=== PATIENT | male | born 1945 | race Caucasian/White ===

== ENCOUNTER 2018-08-14 12:14 | Emergency (ER) | payer MEDICAID, MEDICARE ==
[~2018-08-14] VITALS: Ht 182.9 cm; Wt 86.4 kg
[~2018-08-14 12:14] MED LIST: ARIP30TA PO; BUPR-93 PO; CALC-467 PO; DOCU250C91 PO; METO-408 PO; OLAN5TAB2 PO; OMEP20 PO; OMEP20CA10 PO; VENL75TA63 PO
[2018-08-14] MEDS ORDERED: PALI156D IM (14:18)
[2018-08-14 14:37] LABS: BASOPHILS % (AUTO) 0.8 % (0.0-2.0); EOSINOPHILS % (AUTO) 1.4 % (1.0-6.0); HEMATOCRIT 35.8 % (41-53); LYMPHOCYTES # (AUTO) 1.1 K/uL (1.0-4.8); LYMPHOCYTES % (AUTO) 13.4 % (22.0-44.0); MEAN CORPUSCULAR HEMOGLOBIN 28.6 pg (26.0-34.0); MEAN CORPUSCULAR HGB CONC 33.4 G/dL (31.0-37.0); MEAN CORPUSCULAR VOLUME 86 fL (80-100); MONOCYTES # (AUTO) 0.9 K/uL (0.1-1.0); MONOCYTES % (AUTO) 10.5 % (2.0-9.0); NEUTROPHILS # (AUTO) 6.2 K/uL (1.8-7.7); NEUTROPHILS % (AUTO) 73.9 % (40.0-70.0); PLATELET COUNT (AUTO) 239 K/uL (150-450); RED BLOOD CELL COUNT(AUTO) 4.19 MIL/uL (4.50-5.90)
[2018-08-14 14:42] LABS: ANION GAP 3 mmol/L (8-16); CALCIUM, TOTAL 8.1 mg/dL (8.8-10.5); CARBON DIOXIDE 34 mmol/L (22-29); CHLORIDE 103 mmol/L (98-107); CREATININE 0.74 mg/dL (0.60-1.30); GLOMERULAR FILTR. RATE CALC > 60 mL/min (>60); GLUCOSE,RANDOM 86 mg/dL (70-110); SODIUM SERUM 140 mmol/L (136-145); UREA NITROGEN, BLOOD 17 mg/dL (7-18)
[2018-08-14 14:49] LABS: ALANINE AMINOTRANSFERASE 17 U/L (12-78); ALBUMIN 2.9 g/dL (3.4-5.0); ALKALINE PHOSPHATASE 102 U/L (46-116); ASPARTATE AMINOTRANSFERASE 16 U/L (15-37); BILIRUBIN,TOTAL 0.4 mg/dL (0.1-1.0); TOTAL PROTEIN, SERUM 5.7 g/dL (6.4-8.2)
[2018-08-14 14:50] LABS: PROTHROMBIN TIME 10.4 SEC (9.4-11.6)
[2018-08-14 15:41] VITALS: BP 149/81
== END 2018-08-14 16:10 | disposition home or self-care (01) ==
LOC: EMS 12:15
DX: S01.81XA Laceration without foreign body of other part of head, initial encounter (principal); F17.200 Nicotine dependence, unspecified, uncomplicated; K21.9 Gastro-esophageal reflux disease without esophagitis; I10 Essential (primary) hypertension; F32.9 Major depressive disorder, single episode, unspecified; F20.9 Schizophrenia, unspecified; W01.0XXA Fall on same level from slipping, tripping and stumbling without subsequent striking against object, initial encounter; Y93.89 Activity, other specified; Y92.89 Other specified places as the place of occurrence of the external cause; Y99.8 Other external cause status
CPT/HCPCS: 12011; 70450; 70486; 72125

== ENCOUNTER 2019-11-20 16:50 | Inpatient (IN) | payer MEDICARE, MEDICAID ==
[~2019-11-20] VITALS: Ht 172.7 cm; Wt 77.3 kg
[~2019-11-20 16:50] MED LIST changes: -ARIP30TA PO; -BUPR-93 PO; -CALC-467 PO; -DOCU250C91 PO; -METO-408 PO; -OLAN5TAB2 PO; -OMEP20 PO; -OMEP20CA10 PO; +PALI156D IM; -VENL75TA63 PO
[2019-11-20 17:47] LABS: BASOPHILS % (AUTO) 0.6 % (0.0-2.0); EOSINOPHILS % (AUTO) 4.9 % (1.0-6.0); HEMATOCRIT 27.2 % (41-53); HEMOGLOBIN 8.7 g/dL (13.5-17.5); LYMPHOCYTES # (AUTO) 1.1 K/uL (1.0-4.8); LYMPHOCYTES % (AUTO) 14.1 % (22.0-44.0); MEAN CORPUSCULAR HEMOGLOBIN 23.3 pg (26.0-34.0); MEAN CORPUSCULAR HGB CONC 31.9 G/dL (31.0-37.0); MEAN CORPUSCULAR VOLUME 73 fL (80-100); MONOCYTES # (AUTO) 0.9 K/uL (0.1-1.0); MONOCYTES % (AUTO) 11.5 % (2.0-9.0); NEUTROPHILS # (AUTO) 5.3 K/uL (1.8-7.7); NEUTROPHILS % (AUTO) 68.9 % (40.0-70.0); PLATELET COUNT (AUTO) 317 K/uL (150-450); RED BLOOD CELL COUNT(AUTO) 3.73 MIL/uL (4.50-5.90); RED CELL DISTRIBUTION WIDTH 15.6 % (11.5-14.5)
[2019-11-20 18:09] LABS: ANION GAP 6 mmol/L (8-16); CALCIUM, TOTAL 8.1 mg/dL (8.8-10.5); CARBON DIOXIDE 30 mmol/L (22-29); CHLORIDE 105 mmol/L (98-107); CREATININE 0.75 mg/dL (0.60-1.30); GLUCOSE,RANDOM 95 mg/dL (70-110); POTASSIUM 3.5 mmol/L (3.5-5.1); SODIUM SERUM 141 mmol/L (136-145); UREA NITROGEN, BLOOD 15 mg/dL (7-18)
[2019-11-20 18:13] LABS: GLOMERULAR FILTR. RATE CALC > 60 mL/min (>60)
[2019-11-20 18:15] LABS: ALANINE AMINOTRANSFERASE 14 U/L (12-78); ALBUMIN 2.6 g/dL (3.4-5.0); ALKALINE PHOSPHATASE 76 U/L (46-116); ASPARTATE AMINOTRANSFERASE 10 U/L (15-37); BILIRUBIN,TOTAL 0.3 mg/dL (0.1-1.0); TOTAL PROTEIN, SERUM 6.4 g/dL (6.4-8.2)
[2019-11-20] MEDS ORDERED: CefTRIAXone 1 GM/DEXTROSE 50 ML IV ONE (18:15)
[2019-11-20] MEDS ORDERED: 0.9% SODIUM CHLORIDE 10 ML SYRINGE IVP PRN (20:15)
[2019-11-20] MEDS ORDERED: ACETAMINOPHEN 325 MG TABLET PO PRN ×2 (20:15→22:15)
[2019-11-20] MEDS ORDERED: ONDANSETRON HCL 4 MG/2 ML VIAL IVP PRN ×2 (20:15→22:15)
[2019-11-20] MEDS ORDERED: ZOLPIDEM TARTRATE 5 MG TABLET PO PRN (22:15)
[2019-11-20] MEDS ORDERED: HYDROCODONE/ACETAMINOPHEN 5-325 MG TABLET PO PRN (22:15)
[2019-11-20] MEDS ORDERED: MORPHINE SULFATE 2 MG/ML SYRINGE IVP PRN (22:15)
[2019-11-20] MEDS ORDERED: BISACODYL 10 MG RECTAL RECTAL SUPPOSITORY PR PRN (22:15)
[2019-11-20] MEDS ORDERED: MAGNESIUM HYDROXIDE SUSPENSION 30 ML UDCUP PO PRN (22:15)
[2019-11-20 22:39] VITALS: BP 159/78
[2019-11-20] MEDS ORDERED: VANCOMYCIN HCL 1.5 GM in DEXTROSE 5%-WATER 250 ML IV ONE (23:00)
[2019-11-20] MEDS ORDERED: SODIUM CHLORIDE 0.9% 250 ML IV ONE (23:07)
[2019-11-20] MEDS: HEPARIN SODIUM,PORCINE 5,000 UNITS/ML VIAL SQ SCH (23:10)
[2019-11-21 05:00] VITALS: BP 141/72
[2019-11-21] MEDS ORDERED: INFLUENZA VIRUS VACCINE QVS 2019-20 (3YR+)/PF 60 MCG/0.5 ML SYRINGE IM ONE (05:30)
[2019-11-21] MEDS: VANCOMYCIN HCL 750 MG in DEXTROSE 5%-WATER 250 ML IV SCH ×3 (06:25→23:19)
[2019-11-21] MEDS ORDERED: VANCOMYCIN HCL 500 MG in DEXTROSE 5%-WATER 100 ML IV SCH (07:00)
[2019-11-21 07:48] LABS: BASOPHILS % (AUTO) 0.5 % (0.0-2.0); EOSINOPHILS % (AUTO) 4.1 % (1.0-6.0); HEMATOCRIT 28.1 % (41-53); LYMPHOCYTES # (AUTO) 0.9 K/uL (1.0-4.8); LYMPHOCYTES % (AUTO) 16.2 % (22.0-44.0); MEAN CORPUSCULAR HEMOGLOBIN 23.2 pg (26.0-34.0); MEAN CORPUSCULAR VOLUME 73 fL (80-100); MONOCYTES # (AUTO) 0.6 K/uL (0.1-1.0); MONOCYTES % (AUTO) 10.9 % (2.0-9.0); NEUTROPHILS # (AUTO) 3.7 K/uL (1.8-7.7); NEUTROPHILS % (AUTO) 68.3 % (40.0-70.0); PLATELET COUNT (AUTO) 315 K/uL (150-450); RED BLOOD CELL COUNT(AUTO) 3.88 MIL/uL (4.50-5.90); RED CELL DISTRIBUTION WIDTH 15.5 % (11.5-14.5)
[2019-11-21 08:17] LABS: ALANINE AMINOTRANSFERASE 11 U/L (12-78); ALBUMIN 2.5 g/dL (3.4-5.0); ALKALINE PHOSPHATASE 68 U/L (46-116); ANION GAP 7 mmol/L (8-16); ASPARTATE AMINOTRANSFERASE 7 U/L (15-37); BILIRUBIN,TOTAL 0.4 mg/dL (0.1-1.0); CALCIUM, TOTAL 8.3 mg/dL (8.8-10.5); CARBON DIOXIDE 29 mmol/L (22-29); CHLORIDE 107 mmol/L (98-107); CREATININE 0.76 mg/dL (0.60-1.30); GLUCOSE,RANDOM 85 mg/dL (70-110); POTASSIUM 3.5 mmol/L (3.5-5.1); SODIUM SERUM 143 mmol/L (136-145); UREA NITROGEN, BLOOD 9 mg/dL (7-18)
[2019-11-21 08:18] LABS: GLOMERULAR FILTR. RATE CALC > 60 mL/min (>60)
[2019-11-21] MEDS: DOCUSATE SODIUM 100 MG CAPSULE PO SCH ×2 (08:43→21:22)
[2019-11-21] MEDS: PANTOPRAZOLE SODIUM 40 MG DR TABLET PO SCH (08:43)
[2019-11-21] MEDS: HEPARIN SODIUM,PORCINE 5,000 UNITS/ML VIAL SQ SCH ×3 (08:43→23:18)
[2019-11-21 08:53] VITALS: BP 154/78
[2019-11-21 11:28] VITALS: BP 108/56
[2019-11-21 16:23] VITALS: BP 111/61
[2019-11-21 23:55] VITALS: BP 110/64
[2019-11-22] MEDS ORDERED: SODIUM CHLORIDE 0.9% 250 ML IV ONE (00:30)
[2019-11-22 05:36] VITALS: BP 117/75
[2019-11-22] MEDS: VANCOMYCIN HCL 750 MG in DEXTROSE 5%-WATER 250 ML IV SCH ×3 (06:16→22:27)
[2019-11-22 07:37] VITALS: BP 120/67
[2019-11-22 07:58] LABS: ANION GAP 7 mmol/L (8-16); CALCIUM, TOTAL 8.4 mg/dL (8.8-10.5); CARBON DIOXIDE 27 mmol/L (22-29); CHLORIDE 106 mmol/L (98-107); CREATININE 1.02 mg/dL (0.60-1.30); GLOMERULAR FILTR. RATE CALC > 60 mL/min (>60); GLUCOSE,RANDOM 101 mg/dL (70-110); POTASSIUM 3.9 mmol/L (3.5-5.1); SODIUM SERUM 140 mmol/L (136-145); UREA NITROGEN, BLOOD 14 mg/dL (7-18); VANCOMYCIN,RANDOM 17.1 mcg/mL (25.0-50.0)
[2019-11-22] MEDS: HEPARIN SODIUM,PORCINE 5,000 UNITS/ML VIAL SQ SCH ×3 (08:19→22:57)
[2019-11-22] MEDS: DOCUSATE SODIUM 100 MG CAPSULE PO SCH ×2 (08:19→20:42)
[2019-11-22] MEDS: PANTOPRAZOLE SODIUM 40 MG DR TABLET PO SCH (08:19)
[2019-11-22 11:38] VITALS: BP 116/58
[2019-11-22 15:30] VITALS: BP 105/58
[2019-11-22 20:28] VITALS: BP 110/68
[2019-11-23 00:04] VITALS: BP 134/71
[2019-11-23 05:07] VITALS: BP 145/79
[2019-11-23] MEDS: VANCOMYCIN HCL 750 MG in DEXTROSE 5%-WATER 250 ML IV SCH ×2 (06:23→16:22)
[2019-11-23 08:08] LABS: ANION GAP 3 mmol/L (8-16); CALCIUM, TOTAL 8.4 mg/dL (8.8-10.5); CARBON DIOXIDE 31 mmol/L (22-29); CHLORIDE 104 mmol/L (98-107); CREATININE 0.95 mg/dL (0.60-1.30); GLUCOSE,RANDOM 104 mg/dL (70-110); SODIUM SERUM 138 mmol/L (136-145); UREA NITROGEN, BLOOD 19 mg/dL (7-18)
[2019-11-23 08:09] LABS: GLOMERULAR FILTR. RATE CALC > 60 mL/min (>60)
[2019-11-23 08:10] VITALS: BP 139/74
[2019-11-23] MEDS: DOCUSATE SODIUM 100 MG CAPSULE PO SCH (08:51)
[2019-11-23] MEDS: PANTOPRAZOLE SODIUM 40 MG DR TABLET PO SCH (08:51)
[2019-11-23] MEDS: HEPARIN SODIUM,PORCINE 5,000 UNITS/ML VIAL SQ SCH ×2 (08:51→16:22)
[2019-11-23 11:03] VITALS: BP 102/64
[2019-11-23] MEDS ORDERED: CEPH-582 PO (12:31)
[2019-11-23] MEDS ORDERED: CLIN300C3 PO (12:31)
[2019-11-23] MEDS ORDERED: BACI28.3 TP (12:37)
[2019-11-23 15:42] VITALS: BP 116/60
[2019-11-23] MEDS ORDERED: BACITRACIN/POLYMYXIN B 15 GM OINTMENT TP SCH (21:00)
== END 2019-11-23 18:59 | disposition home or self-care (01) | DRG 602 ==
LOC: EMS 16:50 → 6N 21:50 → 4E 11-23 06:35
PROVIDERS: ADMIT Internal Medicine; ATTEND Internal Medicine
DX: L03.115 Cellulitis of right lower limb (principal); E43 Unspecified severe protein-calorie malnutrition; K21.9 Gastro-esophageal reflux disease without esophagitis; F20.9 Schizophrenia, unspecified; I10 Essential (primary) hypertension; F32.9 Major depressive disorder, single episode, unspecified
CPT/HCPCS: 83605; 93971; 96365; J1644; J3370; J7050; J7060

== ENCOUNTER 2021-10-29 07:00 | Inpatient (IN) | payer MEDICARE, MEDICAID ==
[2021-10-29] VITALS (13 sets, daily range): BP systolic 81–120; BP diastolic 41–58
[~2021-10-29] VITALS: Ht 182.9 cm; Wt 73.3 kg
[~2021-10-29 07:00] MED LIST changes: +BACI28.3 TP; +CEPH-582 PO; +CLIN300C3 PO
[2021-10-29] MEDS ORDERED: PERMETHRIN 5% 60 GM CREAM TP ONE ×2 (07:15→08:00)
[2021-10-29] MEDS ORDERED: SODIUM CHLORIDE 0.9% 1,000 ML IV ONE ×2 (07:30→09:00)
[2021-10-29] MEDS ORDERED: PERTUSS(ACELL),DIPH,TET VAC/PF 0.5 ML SYRINGE IM. ONE (08:00)
[2021-10-29 08:13] LABS: COVID AG,FIA SOURCE NASOPHARYNGEAL
[2021-10-29 08:23] LABS: BASOPHILS % (AUTO) 0.4 % (0.0-2.0); EOSINOPHILS % (AUTO) 1.2 % (1.0-6.0); LYMPHOCYTES # (AUTO) 0.6 K/uL (1.0-4.8); LYMPHOCYTES % (AUTO) 6.3 % (22.0-44.0); MEAN CORPUSCULAR HEMOGLOBIN 20.5 pg (26.0-34.0); MEAN CORPUSCULAR HGB CONC 29.9 G/dL (31.0-37.0); MEAN CORPUSCULAR VOLUME 69 fL (80-100); MONOCYTES # (AUTO) 0.6 K/uL (0.1-1.0); MONOCYTES % (AUTO) 6.5 % (2.0-9.0); NEUTROPHILS # (AUTO) 7.9 K/uL (1.8-7.7); PLATELET COUNT (AUTO) 358 K/uL (150-450); RED BLOOD CELL COUNT(AUTO) 3.21 MIL/uL (4.50-5.90); RED CELL DISTRIBUTION WIDTH 20.8 % (11.5-14.5)
[2021-10-29 08:27] LABS: HEMOGLOBIN 6.6 g/dL (13.5-17.5); NEUTROPHILS % (AUTO) 85.6 % (40.0-70.0)
[2021-10-29 08:49] LABS: ALANINE AMINOTRANSFERASE 21 U/L (12-78); ALBUMIN 2.9 g/dL (3.4-5.0); ALKALINE PHOSPHATASE 95 U/L (46-116); ANION GAP 16 mmol/L (8-16); ASPARTATE AMINOTRANSFERASE 21 U/L (15-37); BILIRUBIN,TOTAL 0.5 mg/dL (0.1-1.0); CALCIUM, TOTAL 8.3 mg/dL (8.8-10.5); CARBON DIOXIDE 22 mmol/L (22-29); CHLORIDE 128 mmol/L (98-107); CREATINE KINASE, TOTAL ONLY 158 U/L (39-308); CREATININE 2.04 mg/dL (0.60-1.30); GLOMERULAR FILTR. RATE CALC 32 mL/min (>60); GLUCOSE,RANDOM 125 mg/dL (70-110); POTASSIUM 3.9 mmol/L (3.5-5.1); TOTAL PROTEIN, SERUM 6.6 g/dL (6.4-8.2); UREA NITROGEN, BLOOD 46 mg/dL (7-18)
[2021-10-29 08:53] LABS: SODIUM SERUM 166 mmol/L (136-145)
[2021-10-29 09:10] LABS: LACTIC ACID 6.9 mmol/L (0.4-2.0)
[2021-10-29] MEDS ORDERED: SODIUM CHLORIDE 0.9% 500 ML IV ONE (09:15)
[2021-10-29] MEDS ORDERED: PIPERACILLIN/TAZO 3.375 GM/D5W 50 ML IV ONE (09:15)
[2021-10-29] MEDS ORDERED: ACETAMINOPHEN 325 MG TABLET PO PRN (10:45)
[2021-10-29] MEDS ORDERED: ONDANSETRON HCL 4 MG/2 ML VIAL IVP PRN ×2 (10:45→11:00)
[2021-10-29] MEDS ORDERED: *CLINICAL-LEVOFLOXACIN IVPB DOSING CLINICAL ONE (11:00)
[2021-10-29] MEDS ORDERED: BISACODYL 10 MG RECTAL RECTAL SUPPOSITORY PR PRN (11:00)
[2021-10-29] MEDS: OXYGEN THERAPY IH SCH ×2 (11:11→17:56)
[2021-10-29] MEDS: DEXTROSE 5%-WATER 1,000 ML IV SCH (11:15)
[2021-10-29] MEDS: LEVOFLOXACIN 750 MG/D5% WATER 150 ML IV SCH ×2 (11:16→11:17)
[2021-10-29] MEDS ORDERED: PETROLATUM,WHITE 28 GM JELLY TP ONE (13:00)
[2021-10-29] MEDS ORDERED: PETROLATUM,WHITE 5 GM PACKET JELLY TP ONE (13:00)
[2021-10-29 13:29] LABS: BASOPHILS % (AUTO) 0.2 % (0.0-2.0); EOSINOPHILS % (AUTO) 1.2 % (1.0-6.0); LYMPHOCYTES # (AUTO) 0.5 K/uL (1.0-4.8); LYMPHOCYTES % (AUTO) 5.2 % (22.0-44.0); MEAN CORPUSCULAR HEMOGLOBIN 20.2 pg (26.0-34.0); MEAN CORPUSCULAR HGB CONC 29.6 G/dL (31.0-37.0); MEAN CORPUSCULAR VOLUME 68 fL (80-100); MONOCYTES % (AUTO) 9.8 % (2.0-9.0); NEUTROPHILS # (AUTO) 8.5 K/uL (1.8-7.7); NEUTROPHILS % (AUTO) 83.6 % (40.0-70.0); PLATELET COUNT (AUTO) 260 K/uL (150-450); RED BLOOD CELL COUNT(AUTO) 2.69 MIL/uL (4.50-5.90); RED CELL DISTRIBUTION WIDTH 21.2 % (11.5-14.5)
[2021-10-29 13:39] LABS: CALCIUM, TOTAL 7.5 mg/dL (8.8-10.5); CREATININE 1.68 mg/dL (0.60-1.30); MAGNESIUM 2.6 mg/dL (1.80-2.40); PHOSPHORUS 3.7 mg/dL (2.5-4.9); POTASSIUM 4.1 mmol/L (3.5-5.1)
[2021-10-29 13:47] LABS: HEMATOCRIT 18.3 % (41-53); HEMOGLOBIN 5.4 g/dL (13.5-17.5)
[2021-10-29] MEDS ORDERED: PANTOPRAZOLE SODIUM 40 MG/VIAL IVP SCH ×2 (17:00→18:00)
[2021-10-29] MEDS: PANTOPRAZOLE SODIUM 80 MG in SODIUM CHLORIDE 0.9% 100 ML IV SCH (20:40)
[2021-10-29] MEDS ORDERED: HEPARIN SODIUM,PORCINE 5,000 UNITS/ML VIAL SQ SCH (21:00)
[2021-10-29] MEDS: MORPHINE SULFATE 2 MG/ML SYRINGE IVP PRN (21:47)
[2021-10-29 23:41] LABS: GLUCOMETER DEV NAME(LOC) ERT.5; GLUCOSE,POINT OF CARE 94 MG/DL (70-110)
[2021-10-30] VITALS (27 sets, daily range): BP systolic 83–109; BP diastolic 38–66
[2021-10-30 00:57] LABS: APPEARANCE,URINE CLOUDY (CLEAR); GLUCOSE, URINE (UA) NEGATIVE (NEGATIVE); KETONES,URINE TRACE mg/dL (NEGATIVE); LEUKOCYTE ESTERASE ,URINE NEGATIVE (NEGATIVE); NITRATE,URINE NEGATIVE (NEGATIVE); OCCULT BLOOD,URINE SMALL (NEGATIVE); PH,URINE 5.5 (5.0-8.0); PROTEIN,URINE TRACE (NEGATIVE)
[2021-10-30 01:00] LABS: CREATININE,URINE RANDOM 201.3 mg/dL (30.0-125.0)
[2021-10-30 01:03] LABS: AMPHET/METH SCREEN,URINE NEGATIVE (NEGATIVE); BARBITURATE SCREEN, URINE NEGATIVE (NEGATIVE); BENZODIAZEPINES SCREEN,URINE NEGATIVE (NEGATIVE); BILIRUBIN,URINE PRELIM. POSITIVE (NEGATIVE); CANNABINOID SCREEN,URINE NEGATIVE (NEGATIVE); COCAINE SCREEN,URINE NEGATIVE (NEGATIVE); METHADONE SCREEN, URINE NEGATIVE (NEGATIVE); OPIATE SCREEN,URINE POSITIVE (NEGATIVE)
[2021-10-30 01:04] LABS: BACTERIA,URINE Few /HPF (None Seen); PHENCYCLIDINE SCREEN,URINE NEGATIVE (NEGATIVE); WBC,URINE 0-2 /HPF (0-5)
[2021-10-30] MEDS: DEXTROSE 5%-WATER 1,000 ML IV SCH ×3 (01:28→22:04)
[2021-10-30] MEDS ORDERED: DEXTROSE 5%-WATER 1,000 ML IV ONE (01:30)
[2021-10-30] MEDS: MORPHINE SULFATE 2 MG/ML SYRINGE IVP PRN (02:54)
[2021-10-30] MEDS: PANTOPRAZOLE SODIUM 80 MG in SODIUM CHLORIDE 0.9% 100 ML IV SCH ×2 (05:45→15:43)
[2021-10-30 07:54] LABS: LYMPHOCYTES # (AUTO) 0.6 K/uL (1.0-4.8); MEAN CORPUSCULAR VOLUME 73 fL (80-100); RED CELL DISTRIBUTION WIDTH 23.9 % (11.5-14.5)
[2021-10-30 07:57] LABS: BASOPHILS % (AUTO) 0.8 % (0.0-2.0); EOSINOPHILS % (AUTO) 2.8 % (1.0-6.0); HEMATOCRIT 21.3 % (41-53); LYMPHOCYTES % (AUTO) 7.5 % (22.0-44.0); MEAN CORPUSCULAR HGB CONC 31.6 G/dL (31.0-37.0); MONOCYTES # (AUTO) 0.9 K/uL (0.1-1.0); MONOCYTES % (AUTO) 11.8 % (2.0-9.0); NEUTROPHILS # (AUTO) 5.8 K/uL (1.8-7.7); NEUTROPHILS % (AUTO) 77.1 % (40.0-70.0); PLATELET COUNT (AUTO) 191 K/uL (150-450); RED BLOOD CELL COUNT(AUTO) 2.92 MIL/uL (4.50-5.90)
[2021-10-30] MEDS: OXYGEN THERAPY IH SCH ×2 (08:00→19:16)
[2021-10-30 08:01] LABS: HEMOGLOBIN 6.7 g/dL (13.5-17.5)
[2021-10-30 08:03] LABS: CALCIUM, TOTAL 7.2 mg/dL (8.8-10.5); CREATININE 1.56 mg/dL (0.60-1.30); POTASSIUM 3.4 mmol/L (3.5-5.1)
[2021-10-30] MEDS ORDERED: PANTOPRAZOLE SODIUM 40 MG/VIAL IVP SCH (09:00)
[2021-10-30] MEDS: POTASSIUM CHL 10 MEQ/WATER 50 ML IV SCH ×4 (11:08→14:19)
[2021-10-30] MEDS ORDERED: VANCOMYCIN HCL 1.25 GM in DEXTROSE 5%-WATER 250 ML IV ONE (11:15)
[2021-10-30 17:29] LABS: HEMATOCRIT 24.9 % (41-53); HEMOGLOBIN 7.9 g/dL (13.5-17.5)
[2021-10-30 17:45] LABS: CALCIUM, TOTAL 7.4 mg/dL (8.8-10.5); CREATININE 1.45 mg/dL (0.60-1.30); MAGNESIUM 2.5 mg/dL (1.80-2.40); PHOSPHORUS 2.7 mg/dL (2.5-4.9); POTASSIUM 3.6 mmol/L (3.5-5.1)
[2021-10-31] MEDS: PANTOPRAZOLE SODIUM 80 MG in SODIUM CHLORIDE 0.9% 100 ML IV SCH (02:16)
[2021-10-31 05:47] LABS: CALCIUM, TOTAL 7.5 mg/dL (8.8-10.5); CREATININE 1.21 mg/dL (0.60-1.30); POTASSIUM 3.4 mmol/L (3.5-5.1)
[2021-10-31] MEDS: DEXTROSE 5%-WATER 1,000 ML IV SCH ×2 (08:02→18:07)
[2021-10-31] MEDS: OXYGEN THERAPY IH SCH ×2 (08:02→19:41)
[2021-10-31] MEDS ORDERED: POTASSIUM CHLORIDE 20 MEQ ER TABLET PO PRN (08:15)
[2021-10-31] MEDS ORDERED: POTASSIUM CHL 10 MEQ/WATER 50 ML IV PRN (08:15)
[2021-10-31] MEDS: VANCOMYCIN HCL 1.25 GM in DEXTROSE 5%-WATER 250 ML IV SCH (08:35)
[2021-10-31] MEDS: PANTOPRAZOLE SODIUM 40 MG/VIAL IVP SCH ×2 (09:03→20:29)
[2021-10-31] MEDS: LEVOFLOXACIN 750 MG/D5% WATER 150 ML IV SCH (10:22)
[2021-10-31] MEDS: POTASSIUM CHL 10 MEQ/WATER 50 ML IV SCH ×2 (18:06→18:53)
[2021-11-01] MEDS: DEXTROSE 5%-WATER 1,000 ML IV SCH ×3 (04:14→21:29)
[2021-11-01 06:30] VITALS: BP 118/79
[2021-11-01 07:26] LABS: BASOPHILS % (AUTO) 0.2 % (0.0-2.0); EOSINOPHILS % (AUTO) 6.1 % (1.0-6.0); HEMATOCRIT 27.9 % (41-53); HEMOGLOBIN 8.9 g/dL (13.5-17.5); LYMPHOCYTES # (AUTO) 0.6 K/uL (1.0-4.8); MEAN CORPUSCULAR HEMOGLOBIN 23.5 pg (26.0-34.0); MEAN CORPUSCULAR VOLUME 73 fL (80-100); MONOCYTES # (AUTO) 0.9 K/uL (0.1-1.0); MONOCYTES % (AUTO) 13.1 % (2.0-9.0); NEUTROPHILS # (AUTO) 5.1 K/uL (1.8-7.7); NEUTROPHILS % (AUTO) 71.6 % (40.0-70.0); PLATELET COUNT (AUTO) 106 K/uL (150-450); RED CELL DISTRIBUTION WIDTH 23.8 % (11.5-14.5)
[2021-11-01 07:29] LABS: ANION GAP 4 mmol/L (8-16); CALCIUM, TOTAL 7.5 mg/dL (8.8-10.5); CARBON DIOXIDE 27 mmol/L (22-29); CHLORIDE 111 mmol/L (98-107); CREATININE 1.03 mg/dL (0.60-1.30); GLOMERULAR FILTR. RATE CALC > 60 mL/min (>60); GLUCOSE,RANDOM 101 mg/dL (70-110); POTASSIUM 3.3 mmol/L (3.5-5.1); SODIUM SERUM 142 mmol/L (136-145); UREA NITROGEN, BLOOD 14 mg/dL (7-18)
[2021-11-01] MEDS: OXYGEN THERAPY IH SCH ×2 (08:00→21:41)
[2021-11-01 08:22] VITALS: BP 128/72
[2021-11-01] MEDS: PANTOPRAZOLE SODIUM 40 MG/VIAL IVP SCH ×2 (09:00→21:30)
[2021-11-01] MEDS: VANCOMYCIN HCL 1.25 GM in DEXTROSE 5%-WATER 250 ML IV SCH (09:15)
[2021-11-01] MEDS: POTASSIUM CHL 10 MEQ/WATER 50 ML IV SCH ×3 (09:42→11:50)
[2021-11-01] MEDS: LEVOFLOXACIN 750 MG/D5% WATER 150 ML IV SCH ×2 (10:52→11:49)
[2021-11-01 11:19] VITALS: BP 115/83
[2021-11-01] MEDS ORDERED: IVERMECTIN 3 MG TABLET PO ONE (11:30)
[2021-11-01 14:58] VITALS: BP 114/60
[2021-11-01 19:25] VITALS: BP 100/60
[2021-11-01] MEDS: VANCOMYCIN HCL 1 GM/D5% WATER 200 ML IV SCH (21:41)
[2021-11-02 03:26] VITALS: BP 130/70
[2021-11-02 07:20] LABS: ANION GAP 4 mmol/L (8-16); CALCIUM, TOTAL 7.7 mg/dL (8.8-10.5); CARBON DIOXIDE 28 mmol/L (22-29); CHLORIDE 105 mmol/L (98-107); CREATININE 0.97 mg/dL (0.60-1.30); GLUCOSE,RANDOM 116 mg/dL (70-110); POTASSIUM 3.8 mmol/L (3.5-5.1); SODIUM SERUM 137 mmol/L (136-145); UREA NITROGEN, BLOOD 18 mg/dL (7-18)
[2021-11-02 07:23] LABS: GLOMERULAR FILTR. RATE CALC > 60 mL/min (>60)
[2021-11-02 07:46] VITALS: BP 137/76
[2021-11-02] MEDS: VANCOMYCIN HCL 1 GM/D5% WATER 200 ML IV SCH ×2 (09:50→21:00)
[2021-11-02] MEDS: OXYGEN THERAPY IH SCH (10:45)
[2021-11-02] MEDS: POTASSIUM CHLORIDE 20 MEQ ER TABLET PO SCH (10:46)
[2021-11-02] MEDS: PANTOPRAZOLE SODIUM 40 MG/VIAL IVP SCH ×2 (10:46→20:59)
[2021-11-02] MEDS: LEVOFLOXACIN 750 MG/D5% WATER 150 ML IV SCH (13:20)
[2021-11-02 16:07] VITALS: BP 99/55
[2021-11-02] MEDS ORDERED: PERMETHRIN 5% 60 GM CREAM TP ONE (20:00)
[2021-11-02] MEDS ORDERED: PIPERONYL BUTOXIDE/PYRETHRINS 120 ML SHAMPOO TP ONE (20:00)
[2021-11-02 20:05] VITALS: BP 109/60
[2021-11-02] MEDS: DEXTROSE 5%-WATER 1,000 ML IV SCH (20:59)
[2021-11-02] MEDS: HEPARIN SODIUM,PORCINE 5,000 UNITS/ML VIAL SQ SCH (20:59)
[2021-11-03] MEDS: MORPHINE SULFATE 2 MG/ML SYRINGE IVP PRN (01:23)
[2021-11-03 05:00] VITALS: BP 106/72
[2021-11-03 07:46] LABS: ANION GAP 6 mmol/L (8-16); CALCIUM, TOTAL 7.2 mg/dL (8.8-10.5); CARBON DIOXIDE 27 mmol/L (22-29); CHLORIDE 100 mmol/L (98-107); CREATININE 0.77 mg/dL (0.60-1.30); GLUCOSE,RANDOM 102 mg/dL (70-110); POTASSIUM 4.1 mmol/L (3.5-5.1); SODIUM SERUM 133 mmol/L (136-145); UREA NITROGEN, BLOOD 26 mg/dL (7-18); VANCOMYCIN,RANDOM 12.5 mcg/mL (25.0-50.0)
[2021-11-03 08:03] LABS: GLOMERULAR FILTR. RATE CALC > 60 mL/min (>60)
[2021-11-03] MEDS: PANTOPRAZOLE SODIUM 40 MG/VIAL IVP SCH (08:56)
[2021-11-03] MEDS: POTASSIUM CHLORIDE 20 MEQ ER TABLET PO SCH (08:56)
[2021-11-03] MEDS: HEPARIN SODIUM,PORCINE 5,000 UNITS/ML VIAL SQ SCH (08:56)
[2021-11-03] MEDS: VANCOMYCIN HCL 1 GM/D5% WATER 200 ML IV SCH (11:15)
[2021-11-03] MEDS: LEVOFLOXACIN 750 MG/D5% WATER 150 ML IV SCH (11:15)
[2021-11-03 15:29] VITALS: BP 100/58
[2021-11-03] MEDS: VANCOMYCIN HCL 750 MG in DEXTROSE 5%-WATER 250 ML IV SCH (16:05)
[2021-11-03] MEDS: DEXTROSE 5%-WATER 1,000 ML IV SCH (18:08)
[2021-11-03 18:39] VITALS: BP 102/82
[2021-11-03 20:00] VITALS: BP 101/78
[2021-11-04] MEDS: HEPARIN SODIUM,PORCINE 5,000 UNITS/ML VIAL SQ SCH ×3 (01:09→21:18)
[2021-11-04] MEDS: PANTOPRAZOLE SODIUM 40 MG/VIAL IVP SCH ×3 (01:12→21:17)
[2021-11-04] MEDS: VANCOMYCIN HCL 750 MG in DEXTROSE 5%-WATER 250 ML IV SCH ×2 (01:13→16:29)
[2021-11-04 03:55] VITALS: BP 105/57
[2021-11-04 06:46] LABS: CHLORIDE 99 mmol/L (98-107)
[2021-11-04 06:47] LABS: ANION GAP 5 mmol/L (8-16); CALCIUM, TOTAL 9.1 mg/dL (8.8-10.5); CARBON DIOXIDE 31 mmol/L (22-29); CREATININE 0.75 mg/dL (0.60-1.30); GLUCOSE,RANDOM 108 mg/dL (70-110); POTASSIUM 4.9 mmol/L (3.5-5.1); SODIUM SERUM 135 mmol/L (136-145); UREA NITROGEN, BLOOD 19 mg/dL (7-18)
[2021-11-04 07:13] LABS: GLOMERULAR FILTR. RATE CALC > 60 mL/min (>60)
[2021-11-04 08:52] VITALS: BP 105/58
[2021-11-04] MEDS: MULTIVITAMINS, THERAPEUTIC TABLET PO SCH (09:34)
[2021-11-04] MEDS: POTASSIUM CHLORIDE 20 MEQ ER TABLET PO SCH (09:37)
[2021-11-04] MEDS ORDERED: SODIUM CHLORIDE 0.9% 250 ML IV ONE (12:35)
[2021-11-04] MEDS: LEVOFLOXACIN 750 MG/D5% WATER 150 ML IV SCH (12:39)
[2021-11-04 15:42] VITALS: BP 110/60
[2021-11-04] MEDS: DEXTROSE 5%-WATER 1,000 ML IV SCH (16:30)
[2021-11-04 19:45] VITALS: BP 105/55
[2021-11-05] MEDS: VANCOMYCIN HCL 750 MG in DEXTROSE 5%-WATER 250 ML IV SCH ×4 (00:25→23:27)
[2021-11-05 04:15] VITALS: BP 101/51
[2021-11-05 07:45] VITALS: BP 108/70
[2021-11-05] MEDS: PANTOPRAZOLE SODIUM 40 MG/VIAL IVP SCH ×2 (09:55→20:38)
[2021-11-05] MEDS: MULTIVITAMINS, THERAPEUTIC TABLET PO SCH (09:55)
[2021-11-05] MEDS: HEPARIN SODIUM,PORCINE 5,000 UNITS/ML VIAL SQ SCH ×2 (09:55→20:43)
[2021-11-05] MEDS: POTASSIUM CHLORIDE 20 MEQ ER TABLET PO SCH (09:56)
[2021-11-05 09:57] LABS: ANION GAP 3 mmol/L (8-16); CALCIUM, TOTAL 7.1 mg/dL (8.8-10.5); CARBON DIOXIDE 25 mmol/L (22-29); CHLORIDE 99 mmol/L (98-107); CREATININE 0.91 mg/dL (0.60-1.30); GLUCOSE,RANDOM 99 mg/dL (70-110); POTASSIUM 4.5 mmol/L (3.5-5.1); SODIUM SERUM 127 mmol/L (136-145); UREA NITROGEN, BLOOD 41 mg/dL (7-18); VANCOMYCIN,RANDOM 14.8 mcg/mL (25.0-50.0)
[2021-11-05 10:02] LABS: GLOMERULAR FILTR. RATE CALC > 60 mL/min (>60)
[2021-11-05] MEDS: LEVOFLOXACIN 750 MG/D5% WATER 150 ML IV SCH (12:08)
[2021-11-05] MEDS: DEXTROSE 5%-WATER 1,000 ML IV SCH (12:09)
[2021-11-05 13:14] VITALS: BP 114/61
[2021-11-05 15:49] VITALS: BP 110/68
[2021-11-05] MEDS: ACETAMINOPHEN 325 MG TABLET PO PRN (20:57)
[2021-11-06 04:57] VITALS: BP 106/68
[2021-11-06] MEDS: DEXTROSE 5%-WATER 1,000 ML IV SCH ×2 (06:17→09:38)
[2021-11-06] MEDS: OXYGEN THERAPY IH SCH ×2 (08:00→20:00)
[2021-11-06 08:20] VITALS: BP 97/51
[2021-11-06] MEDS: POTASSIUM CHLORIDE 20 MEQ ER TABLET PO SCH (08:38)
[2021-11-06] MEDS: MULTIVITAMINS, THERAPEUTIC TABLET PO SCH (08:38)
[2021-11-06] MEDS: HEPARIN SODIUM,PORCINE 5,000 UNITS/ML VIAL SQ SCH ×2 (08:38→22:19)
[2021-11-06] MEDS: PANTOPRAZOLE SODIUM 40 MG/VIAL IVP SCH ×2 (08:38→22:19)
[2021-11-06 08:42] LABS: ANION GAP 4 mmol/L (8-16); CALCIUM, TOTAL 7.2 mg/dL (8.8-10.5); CARBON DIOXIDE 26 mmol/L (22-29); CHLORIDE 99 mmol/L (98-107); CREATININE 0.89 mg/dL (0.60-1.30); GLUCOSE,RANDOM 97 mg/dL (70-110); POTASSIUM 4.5 mmol/L (3.5-5.1); SODIUM SERUM 129 mmol/L (136-145); UREA NITROGEN, BLOOD 30 mg/dL (7-18)
[2021-11-06 08:46] LABS: GLOMERULAR FILTR. RATE CALC > 60 mL/min (>60)
[2021-11-06] MEDS: VANCOMYCIN HCL 750 MG in DEXTROSE 5%-WATER 250 ML IV SCH ×2 (09:51→16:50)
[2021-11-06] MEDS: LEVOFLOXACIN 750 MG/D5% WATER 150 ML IV SCH (11:29)
[2021-11-06 12:10] VITALS: BP 90/50
[2021-11-06] MEDS ORDERED: MAGNESIUM HYDROXIDE SUSPENSION 30 ML UDCUP PO PRN (12:30)
[2021-11-06 16:07] VITALS: BP 94/49
[2021-11-06 19:50] VITALS: BP 98/49
[2021-11-06 20:15] VITALS: BP 95/51
[2021-11-07] VITALS (12 sets, daily range): BP systolic 85–116; BP diastolic 41–66
[2021-11-07] MEDS: DEXTROSE 5%-WATER 1,000 ML IV SCH ×2 (00:36→22:06)
[2021-11-07] MEDS: VANCOMYCIN HCL 750 MG in DEXTROSE 5%-WATER 250 ML IV SCH ×2 (00:37→08:49)
[2021-11-07 07:57] LABS: BASOPHILS % (AUTO) 0.8 % (0.0-2.0); EOSINOPHILS % (AUTO) 11.9 % (1.0-6.0); LYMPHOCYTES % (AUTO) 10.9 % (22.0-44.0); MEAN CORPUSCULAR HGB CONC 32.8 G/dL (31.0-37.0); MEAN CORPUSCULAR VOLUME 73 fL (80-100); MONOCYTES # (AUTO) 1.1 K/uL (0.1-1.0); MONOCYTES % (AUTO) 11.7 % (2.0-9.0); NEUTROPHILS # (AUTO) 5.8 K/uL (1.8-7.7); NEUTROPHILS % (AUTO) 64.7 % (40.0-70.0); PLATELET COUNT (AUTO) 182 K/uL (150-450); RED BLOOD CELL COUNT(AUTO) 2.54 MIL/uL (4.50-5.90); RED CELL DISTRIBUTION WIDTH 25.6 % (11.5-14.5)
[2021-11-07 08:09] LABS: ANION GAP 0 mmol/L (8-16); CALCIUM, TOTAL 7.4 mg/dL (8.8-10.5); CARBON DIOXIDE 29 mmol/L (22-29); CHLORIDE 100 mmol/L (98-107); CREATININE 0.96 mg/dL (0.60-1.30); GLOMERULAR FILTR. RATE CALC > 60 mL/min (>60); GLUCOSE,RANDOM 89 mg/dL (70-110); POTASSIUM 4.1 mmol/L (3.5-5.1); SODIUM SERUM 129 mmol/L (136-145); UREA NITROGEN, BLOOD 21 mg/dL (7-18)
[2021-11-07 08:13] LABS: HEMATOCRIT 18.6 % (41-53); HEMOGLOBIN 6.1 g/dL (13.5-17.5)
[2021-11-07 08:49] LABS: HEMOGLOBIN 6.3 g/dL (13.5-17.5)
[2021-11-07 08:50] LABS: HEMATOCRIT 19.5 % (41-53)
[2021-11-07] MEDS: HEPARIN SODIUM,PORCINE 5,000 UNITS/ML VIAL SQ SCH ×2 (09:02→21:46)
[2021-11-07] MEDS: PANTOPRAZOLE SODIUM 40 MG/VIAL IVP SCH ×2 (09:02→21:45)
[2021-11-07] MEDS: POTASSIUM CHLORIDE 20 MEQ ER TABLET PO SCH (09:03)
[2021-11-07] MEDS: MULTIVITAMINS, THERAPEUTIC TABLET PO SCH (09:03)
[2021-11-07] MEDS: LEVOFLOXACIN 750 MG/D5% WATER 150 ML IV SCH (11:01)
[2021-11-07] MEDS: OXYGEN THERAPY IH SCH (20:59)
[2021-11-08] MEDS: VANCOMYCIN HCL 750 MG in DEXTROSE 5%-WATER 250 ML IV SCH ×4 (00:18→16:13)
[2021-11-08 00:45] VITALS: BP 101/58
[2021-11-08 04:35] VITALS: BP 118/73
[2021-11-08] MEDS: DEXTROSE 5%-WATER 1,000 ML IV SCH ×2 (04:37→18:07)
[2021-11-08 07:09] LABS: ANION GAP 1 mmol/L (8-16); CALCIUM, TOTAL 7.4 mg/dL (8.8-10.5); CARBON DIOXIDE 29 mmol/L (22-29); CHLORIDE 101 mmol/L (98-107); CREATININE 0.83 mg/dL (0.60-1.30); GLUCOSE,RANDOM 98 mg/dL (70-110); POTASSIUM 4.1 mmol/L (3.5-5.1); SODIUM SERUM 131 mmol/L (136-145); UREA NITROGEN, BLOOD 20 mg/dL (7-18); VANCOMYCIN,RANDOM 18.7 mcg/mL (25.0-50.0)
[2021-11-08 07:10] LABS: GLOMERULAR FILTR. RATE CALC > 60 mL/min (>60)
[2021-11-08] MEDS: OXYGEN THERAPY IH SCH ×3 (07:50→20:22)
[2021-11-08 08:22] VITALS: BP 119/68
[2021-11-08 08:36] LABS: BASOPHILS % (AUTO) 0.8 % (0.0-2.0); EOSINOPHILS % (AUTO) 8.7 % (1.0-6.0); HEMATOCRIT 23.2 % (41-53); HEMOGLOBIN 7.7 g/dL (13.5-17.5); LYMPHOCYTES % (AUTO) 10.9 % (22.0-44.0); MEAN CORPUSCULAR HEMOGLOBIN 25.2 pg (26.0-34.0); MEAN CORPUSCULAR HGB CONC 33.1 G/dL (31.0-37.0); MEAN CORPUSCULAR VOLUME 76 fL (80-100); MONOCYTES # (AUTO) 1.1 K/uL (0.1-1.0); MONOCYTES % (AUTO) 11.6 % (2.0-9.0); NEUTROPHILS # (AUTO) 6.2 K/uL (1.8-7.7); PLATELET COUNT (AUTO) 314 K/uL (150-450); RED BLOOD CELL COUNT(AUTO) 3.06 MIL/uL (4.50-5.90); RED CELL DISTRIBUTION WIDTH 25.7 % (11.5-14.5)
[2021-11-08] MEDS: POTASSIUM CHLORIDE 20 MEQ ER TABLET PO SCH (08:47)
[2021-11-08] MEDS: HEPARIN SODIUM,PORCINE 5,000 UNITS/ML VIAL SQ SCH (08:47)
[2021-11-08] MEDS: PANTOPRAZOLE SODIUM 40 MG/VIAL IVP SCH ×2 (08:48→21:42)
[2021-11-08] MEDS: MULTIVITAMINS WITH MINERALS, THERAPEUTIC TABLET PO SCH (08:48)
[2021-11-08] MEDS: SOD FERRIC GLUC COMPLX/SUCROSE 125 MG in SODIUM CHLORIDE 0.9% 100 ML IV SCH (11:05)
[2021-11-08 12:28] VITALS: BP 95/51
[2021-11-08 16:26] VITALS: BP 108/62
[2021-11-08 19:55] VITALS: BP 91/49
[2021-11-09] MEDS: VANCOMYCIN HCL 750 MG in DEXTROSE 5%-WATER 250 ML IV SCH ×2 (00:55→08:34)
[2021-11-09 05:40] VITALS: BP 90/83
[2021-11-09 06:57] LABS: ANION GAP 1 mmol/L (8-16); CALCIUM, TOTAL 7.6 mg/dL (8.8-10.5); CARBON DIOXIDE 30 mmol/L (22-29); CHLORIDE 102 mmol/L (98-107); CREATININE 0.81 mg/dL (0.60-1.30); GLOMERULAR FILTR. RATE CALC > 60 mL/min (>60); GLUCOSE,RANDOM 90 mg/dL (70-110); POTASSIUM 3.8 mmol/L (3.5-5.1); SODIUM SERUM 133 mmol/L (136-145); UREA NITROGEN, BLOOD 15 mg/dL (7-18)
[2021-11-09 08:17] VITALS: BP 117/63
[2021-11-09] MEDS: OXYGEN THERAPY IH SCH (08:20)
[2021-11-09] MEDS: PANTOPRAZOLE SODIUM 40 MG/VIAL IVP SCH ×2 (08:33→21:36)
[2021-11-09] MEDS: MULTIVITAMINS WITH MINERALS, THERAPEUTIC TABLET PO SCH (08:34)
[2021-11-09] MEDS: POTASSIUM CHLORIDE 20 MEQ ER TABLET PO SCH (08:34)
[2021-11-09 08:36] VITALS: BP 124/72
[2021-11-09] MEDS: SOD FERRIC GLUC COMPLX/SUCROSE 125 MG in SODIUM CHLORIDE 0.9% 100 ML IV SCH (10:35)
[2021-11-09] MEDS: CLINDAMYCIN HCL 300 MG CAPSULE PO SCH (16:43)
[2021-11-09 19:40] VITALS: BP 80/43
[2021-11-09 23:00] VITALS: BP 110/66
[2021-11-10] MEDS: CLINDAMYCIN HCL 300 MG CAPSULE PO SCH ×3 (00:38→16:47)
[2021-11-10 04:40] VITALS: BP 100/54
[2021-11-10 08:05] VITALS: BP 102/58
[2021-11-10] MEDS: PANTOPRAZOLE SODIUM 40 MG/VIAL IVP SCH (08:08)
[2021-11-10] MEDS: OXYGEN THERAPY IH SCH ×2 (08:08→08:10)
[2021-11-10] MEDS: MULTIVITAMINS WITH MINERALS, THERAPEUTIC TABLET PO SCH (08:09)
[2021-11-10] MEDS: POTASSIUM CHLORIDE 20 MEQ ER TABLET PO SCH (08:09)
[2021-11-10 08:29] LABS: BASOPHILS % (AUTO) 0.6 % (0.0-2.0); EOSINOPHILS % (AUTO) 10.1 % (1.0-6.0); HEMATOCRIT 24.5 % (41-53); HEMOGLOBIN 7.8 g/dL (13.5-17.5); LYMPHOCYTES # (AUTO) 1.2 K/uL (1.0-4.8); LYMPHOCYTES % (AUTO) 13.6 % (22.0-44.0); MEAN CORPUSCULAR HEMOGLOBIN 24.8 pg (26.0-34.0); MEAN CORPUSCULAR HGB CONC 32.1 G/dL (31.0-37.0); MEAN CORPUSCULAR VOLUME 78 fL (80-100); MONOCYTES # (AUTO) 0.8 K/uL (0.1-1.0); MONOCYTES % (AUTO) 9.3 % (2.0-9.0); NEUTROPHILS % (AUTO) 66.4 % (40.0-70.0); PLATELET COUNT (AUTO) 448 K/uL (150-450); RED BLOOD CELL COUNT(AUTO) 3.16 MIL/uL (4.50-5.90)
[2021-11-10 08:45] LABS: ANION GAP 5 mmol/L (8-16); CALCIUM, TOTAL 7.8 mg/dL (8.8-10.5); CARBON DIOXIDE 30 mmol/L (22-29); CHLORIDE 103 mmol/L (98-107); CREATININE 0.71 mg/dL (0.60-1.30); GLUCOSE,RANDOM 89 mg/dL (70-110); SODIUM SERUM 138 mmol/L (136-145); UREA NITROGEN, BLOOD 13 mg/dL (7-18)
[2021-11-10 08:47] LABS: GLOMERULAR FILTR. RATE CALC > 60 mL/min (>60)
[2021-11-10] MEDS: SOD FERRIC GLUC COMPLX/SUCROSE 125 MG in SODIUM CHLORIDE 0.9% 100 ML IV SCH (11:17)
[2021-11-10 12:11] VITALS: BP 99/56
[2021-11-10 16:12] VITALS: BP 97/58
[2021-11-10] MEDS: FAMOTIDINE 20 MG TABLET PO SCH (20:36)
[2021-11-10 23:00] VITALS: BP 99/60
[2021-11-11] MEDS: CLINDAMYCIN HCL 300 MG CAPSULE PO SCH ×3 (03:30→16:43)
[2021-11-11] MEDS: OXYGEN THERAPY IH SCH ×2 (08:00→20:00)
[2021-11-11 08:31] VITALS: BP 109/59
[2021-11-11] MEDS: FAMOTIDINE 20 MG TABLET PO SCH ×2 (10:04→21:38)
[2021-11-11] MEDS: POTASSIUM CHLORIDE 20 MEQ ER TABLET PO SCH (10:05)
[2021-11-11] MEDS: MULTIVITAMINS WITH MINERALS, THERAPEUTIC TABLET PO SCH (10:05)
[2021-11-11] MEDS ORDERED: SODIUM CHLORIDE 0.9% IRRIG BTL 1,000 ML IRRIG ONE (11:02)
[2021-11-11 14:14] VITALS: BP 104/63
[2021-11-11 22:33] VITALS: BP 97/66
[2021-11-12] MEDS: CLINDAMYCIN HCL 300 MG CAPSULE PO SCH ×3 (00:07→16:03)
[2021-11-12 01:52] VITALS: BP 100/63
[2021-11-12 08:43] VITALS: BP 114/63
[2021-11-12] MEDS: POTASSIUM CHLORIDE 20 MEQ ER TABLET PO SCH (08:44)
[2021-11-12] MEDS: FAMOTIDINE 20 MG TABLET PO SCH ×2 (08:44→22:06)
[2021-11-12] MEDS: MULTIVITAMINS WITH MINERALS, THERAPEUTIC TABLET PO SCH (08:44)
[2021-11-12] MEDS: OXYGEN THERAPY IH SCH ×2 (08:45→20:00)
[2021-11-12] MEDS: ACETAMINOPHEN 325 MG TABLET PO PRN (10:16)
[2021-11-12 11:31] VITALS: BP 105/59
[2021-11-12 16:11] VITALS: BP 92/46
[2021-11-12 21:43] VITALS: BP 93/55
[2021-11-13] MEDS: CLINDAMYCIN HCL 300 MG CAPSULE PO SCH ×2 (01:27→09:06)
[2021-11-13 04:38] VITALS: BP 101/55
[2021-11-13 08:28] VITALS: BP 101/67
[2021-11-13] MEDS: MULTIVITAMINS WITH MINERALS, THERAPEUTIC TABLET PO SCH (09:05)
[2021-11-13] MEDS: FAMOTIDINE 20 MG TABLET PO SCH (09:05)
[2021-11-13] MEDS: POTASSIUM CHLORIDE 20 MEQ ER TABLET PO SCH (09:05)
[2021-11-13] MEDS: ACETAMINOPHEN 325 MG TABLET PO PRN (09:08)
[2021-11-13] MEDS: OXYGEN THERAPY IH SCH (10:38)
== END 2021-11-13 14:30 | DRG 871 ==
LOC: EMS 07:02 → ICUN 17:49 → 5S 11-01 03:16 → 6N 11-01 14:35
PROVIDERS: ADMIT Internal Medicine; ATTEND Internal Medicine
PROC: 30233N1 Transfusion of Nonautologous Red Blood Cells into Peripheral Vein, Percutaneous Approach (ICD-10-PCS; principal; 2021-10-29)
PROC: 0HQ0XZZ Repair Scalp Skin, External Approach (ICD-10-PCS; 2021-10-29)
DX: A41.02 Sepsis due to Methicillin resistant Staphylococcus aureus (principal); E43 Unspecified severe protein-calorie malnutrition; G92.8 Other toxic encephalopathy; J18.9 Pneumonia, unspecified organism; J69.0 Pneumonitis due to inhalation of food and vomit; N17.9 Acute kidney failure, unspecified; E87.0 Hyperosmolality and hypernatremia; J93.9 Pneumothorax, unspecified; I10 Essential (primary) hypertension; S01.01XA Laceration without foreign body of scalp, initial encounter; Z20.822 Contact with and (suspected) exposure to COVID-19; B85.4 Mixed pediculosis and phthiriasis; D50.9 Iron deficiency anemia, unspecified; E03.9 Hypothyroidism, unspecified; E86.0 Dehydration; E87.6 Hypokalemia; F20.9 Schizophrenia, unspecified; H54.7 Unspecified visual loss; R68.0 Hypothermia, not associated with low environmental temperature; E83.51 Hypocalcemia; R62.7 Adult failure to thrive; D63.8 Anemia in other chronic diseases classified elsewhere; X58.XXXA Exposure to other specified factors, initial encounter; Z68.21 Body mass index [BMI] 21.0-21.9, adult; Y93.89 Activity, other specified; Y92.89 Other specified places as the place of occurrence of the external cause; Y99.8 Other external cause status
CPT/HCPCS: 12001; 51701; 70450; 71045; 71250; 72125; 74176; 76770; 80048; 80053; 80202; 81001; 82271; 82550; 82570; 82962; 83605; 83735; 84100; 84156; 84300; 84443; 84540; 85014; 85018; 85025; 86850; 86900; 86901; 86923; 87040; 87077; 87205; 90715; 92526; 92610; 93005; 97110; 97116; 97162; 97530; 99291; 99292; C9113; G0378; G0480; J1644; J1956; J2270; J2405; J2543; J2916; J3370; J3480; J7030; J7050; J7060; P9016; 36415-L1; 36415-TC; U0003